=== PATIENT | female | born 1945 | race Caucasian/White ===

== ENCOUNTER 2020-01-03 08:51 | Inpatient (IN) ==
[2020-01-11] MEDS ORDERED: GLUCAGON 1 MG VIAL IM PRN (10:19)
[2020-01-11] MEDS ORDERED: CEFUROXIME INJ 1,500 MG in SYRINGE 1 EACH IV ONE (10:19)
[2020-01-11] MEDS ORDERED: DEXTROSE 10% 250 ML BAG IV PRN (10:19)
[2020-01-11] MEDS ORDERED: SODIUM CHLORIDE 0.9% 1,000 ML IV SCH (10:30)
[2020-01-11] MEDS ORDERED: ZALEPLON 5 MG CAPSULE PO PRN (10:52)
[2020-01-11] MEDS ORDERED: NITROGLYCERIN SL 0.4 MG TABLET SL PRN (10:52)
[2020-01-11 11:18] LABS: Basophils # 0.1 10*3/uL (0.0-0.2); Basophils % 0.8 % (0.0-0.8); Eosinophils # 0.5 10*3/uL (0.0-0.87); Eosinophils % 4.7 % (0.00-10.9); Hematocrit 30.7 VOL% (35.7-47.0); Hemoglobin 9.3 GM/DL (12.0-16.0); Immature Granulocytes % 0.3 %; Immature Granulocytes Absolute 0.03 #; Lymphocytes # 2.6 10*3/uL (1.4-4.0); Lymphocytes % 23.2 % (21.3-54.2); Mean Corpuscular HGB Conc 30.3 GM/DL (32-36); Mean Corpuscular Volume 88.7 FL (87-102); Mean Platelet Volume 11.8 FL (9.6-12.0); Monocytes % 9.1 % (1.7-12.7); Neutrophils % 61.9 % (38.7-73.9); Platelet Count 228 T/CUMM (130-400); Red Blood Count 3.46 MC/CUMM (3.8-5.5); Red Cell Distribution Width 14.6 % (9.3-17.3); White Blood Count 11.1 T/CUMM (4-12)
[2020-01-11] MEDS ORDERED: FAMOTIDINE 20 MG TABLET PO ONE (11:39)
[2020-01-11] MEDS ORDERED: DIAZEPAM 5 MG TABLET PO ONE (11:39)
[2020-01-11 11:48] LABS: Albumin 3.2 G/DL (3.4-5.0); Bilirubin,Total 0.6 MG/DL (0.2-1.0); Calcium 9.1 MG/DL (8.5-10.1); Total Protein 7.2 G/DL (6.4-8.3)
[2020-01-11 12:10] LABS: ABG Base Excess 1.3 MMOL/L (-2.5-2.5); ABG HCO3 25.6 MMOL/L (20-26); ABG Oxygen Saturation 98.2 % (95-100); ABG PCO2 32.3 MM HG (35-48); ABG PH 7.486 (7.35-7.45); ABG PO2 92.1 MM HG (80-95); ABG TCO2 22.4 MMOL/L (23-27)
[2020-01-11] MEDS: CHLORHEXIDINE 4% SOLN 118 ML BOTTLE TOP SCH ×2 (15:42→22:26)
[2020-01-11] MEDS: carvediloL 12.5 MG TABLET PO SCH (18:51)
[2020-01-11] MEDS ORDERED: ATORVASTATIN 80 MG TABLET PO SCH (21:00)
[2020-01-11] MEDS: CHLORHEXIDINE 0.12% ORAL RINSE 60 ML BOTTLE SWISH/SPIT SCH (22:26)
[2020-01-12] MEDS ORDERED: VANCOMYCIN 500 MG VIAL ONE ×3 (04:21→08:30)
[2020-01-12] MEDS ORDERED: VANCOMYCIN 1,000 MG VIAL ONE ×3 (04:21→05:47)
[2020-01-12] MEDS ORDERED: PAPAVERINE 60 MG/2 ML VIAL ONE ×2 (04:21→05:21)
[2020-01-12] MEDS ORDERED: HEPARIN/NACL 0.9% 2 UNITS/ML 500 ML IV ONE (06:00)
[2020-01-12] MEDS ORDERED: FAMOTIDINE 20 MG TABLET PO ONE (06:30)
[2020-01-12] MEDS ORDERED: DIAZEPAM 5 MG TABLET PO ONE (06:30)
[2020-01-12] MEDS ORDERED: CEFUROXIME INJ 1,500 MG in SYRINGE 1 EACH IV ONE (06:30)
[2020-01-12] MEDS ORDERED: diphenhydrAMINE 50 MG/1 ML VIAL ONE (06:40)
[2020-01-12] MEDS ORDERED: FAMOTIDINE 20 MG/2 ML VIAL IV ONE (06:40)
[2020-01-12 07:34] LABS: ABG Base Excess 0.5 MMOL/L (-2.5-2.5); ABG HCO3 24.9 MMOL/L (20-26); ABG PCO2 32.9 MM HG (35-48); ABG PH 7.468 (7.35-7.45); ABG TCO2 22.2 MMOL/L (23-27); Glucose Heart Surgery 115 MG/DL (74-106); Hematocrit Heart Surgery 25.2 PERCENT (37-47); Hemoglobin Heart Surgery 8.1 G/DL (12.0-16.0); Ionized Calcium Arterial 1.21 MMOL/L (1.21-1.46); PCO2 Patient Temp Arterial 32.9 MMHG; PH Patient Temp Arterial 7.468; Patient Temperature 37 CELCIUS; Potassium Heart/CVR 3.3 MMOL/L (3.5-5.1); Sodium Heart/CVR 138 MMOL/L (135-145)
[2020-01-12] MEDS ORDERED: SODIUM BICARBONATE 50 MEQ/50 ML VIAL IV ONE ×2 (07:40→11:57)
[2020-01-12] MEDS ORDERED: CALCIUM CHLORIDE 1,000 MG/10 ML SYRINGE IV ONE (07:40)
[2020-01-12] MEDS ORDERED: ATROPINE 1 MG/10 ML SYRINGE ONE (07:41)
[2020-01-12] MEDS ORDERED: EPINEPHrine 1 MG/10 ML SYRINGE ONE (07:41)
[2020-01-12 08:59] LABS: Amorphous Crystals,Urine Occasional /HPF (Few); Apearance,Urine Slightly Hazy (Clear); Bilirubin,Urine Negative (Negative); Blood, Urine Negative (Negative); Glucose,Urine (UA) Negative (Negative); Hyaline Casts,Urine 4 /LPF (0-3); Ketones,Urine Negative (Negative); Mucus,Urine Occasional /LPF (Occasional); Nitrite,Urine Negative (Negative); Protein,Urine 30 MG/DL; RBC,Urine 2 /HPF (0-4); Urine Color Yellow (Yellow); Urine Specific Gravity 1.021 (1.001-1.035); Urine Urobilinogen < 2.0 EU/DL (0.2-1.0); WBC,Urine 3 /HPF (0-6)
[2020-01-12 09:03] LABS: Hemoglobin Heart Surgery 7.7 G/DL (12.0-16.0); PCO2 Patient Temp Venous 26.4 MM HG; PH Patient Temp Venous 7.512; PO2 Patient Temp Venous 41.4 MM HG; VBG Base Excess -1.1 MEQ/L (0-4); VBG HCO3 23.3 MEQ/L (24-28); VBG Oxygen Saturation 88.6 %; VBG PCO2 30.5 MMHG (41-51); VBG PH 7.467; VBG PO2 50.8 MMHG (17-40)
[2020-01-12 09:34] LABS: Hematocrit Heart Surgery 25.4 PERCENT (37-47); Hemoglobin Heart Surgery 8.2 G/DL (12.0-16.0); PCO2 Patient Temp Venous 27.2 MM HG; PH Patient Temp Venous 7.509; Potassium Heart/CVR 4.4 MMOL/L (3.5-5.1); VBG Base Excess -0.7 MEQ/L (0-4); VBG HCO3 23.7 MEQ/L (24-28); VBG Oxygen Saturation 89.6 %; VBG PH 7.449; VBG PO2 53.7 MMHG (17-40)
[2020-01-12 10:06] LABS: Hemoglobin Heart Surgery 8.6 G/DL (12.0-16.0); PCO2 Patient Temp Venous 26.4 MM HG; PH Patient Temp Venous 7.569; PO2 Patient Temp Venous 44.7 MM HG; Potassium Heart/CVR 4.4 MMOL/L (3.5-5.1); VBG Base Excess 1.6 MEQ/L (0-4); VBG HCO3 24.2 MEQ/L (24-28); VBG Oxygen Saturation 90.4 %; VBG PCO2 30.1 MMHG (41-51); VBG PH 7.523; VBG PO2 55.1 MMHG (17-40)
[2020-01-12] MEDS ORDERED: THROMBIN TOPICAL (RECOMBINANT) 5,000 UNIT VIAL TOP ONE ×2 (10:25→13:14)
[2020-01-12 10:31] LABS: Hemoglobin Heart Surgery 7.6 G/DL (12.0-16.0); PCO2 Patient Temp Venous 33.3 MM HG; PH Patient Temp Venous 7.486; PO2 Patient Temp Venous 38.9 MM HG; Potassium Heart/CVR 4.7 MMOL/L (3.5-5.1); VBG Base Excess 1.2 MEQ/L (0-4); VBG HCO3 24.6 MEQ/L (24-28); VBG Oxygen Saturation 75.3 %; VBG PCO2 33.3 MMHG (41-51); VBG PH 7.486; VBG PO2 38.9 MMHG (17-40)
[2020-01-12] MEDS ORDERED: PHENYLEPHRINE DRIP 40 MG/250 ML PREMIX IV ONE (10:45)
[2020-01-12] MEDS ORDERED: POTASSIUM CHLORIDE RIDER 100 ML IV ONE (10:45)
[2020-01-12] MEDS: CHLORHEXIDINE 0.12% ORAL RINSE 60 ML BOTTLE SWISH/SPIT SCH ×2 (11:08→21:35)
[2020-01-12] MEDS: carvediloL 12.5 MG TABLET PO SCH (11:08)
[2020-01-12] MEDS: CHLORHEXIDINE 4% SOLN 118 ML BOTTLE TOP SCH (11:08)
[2020-01-12 11:38] LABS: ABG Base Excess -1.7 MMOL/L (-2.5-2.5); ABG PCO2 27.2 MM HG (35-48); ABG PH 7.495 (7.35-7.45); ABG TCO2 19.6 MMOL/L (23-27); Glucose Heart Surgery 214 MG/DL (74-106); Hematocrit Heart Surgery 24.1 PERCENT (37-47); Hemoglobin Heart Surgery 7.7 G/DL (12.0-16.0); Ionized Calcium Arterial 1.32 MMOL/L (1.21-1.46); PCO2 Patient Temp Arterial 27.2 MMHG; PH Patient Temp Arterial 7.495; Patient Temperature 37 CELCIUS; Potassium Heart/CVR 3.8 MMOL/L (3.5-5.1); Sodium Heart/CVR 137 MMOL/L (135-145)
[2020-01-12] MEDS ORDERED: MANNITOL 100 GM/500 ML BAG IV ONE (11:56)
[2020-01-12] MEDS ORDERED: LIDOCAINE 2% 5 ML VIAL ONE ×2 (11:56→13:59)
[2020-01-12] MEDS ORDERED: PROTAMINE SULFATE 250 MG/25 ML VIAL IV ONE (11:57)
[2020-01-12] MEDS ORDERED: FUROSEMIDE 20 MG/2 ML VIAL ONE (11:57)
[2020-01-12] MEDS ORDERED: ALBUMIN 25% 25 GM/100 ML VIAL IV ONE (11:57)
[2020-01-12] MEDS ORDERED: HEPARIN 10,000 UNIT/10 ML VIAL ONE (11:57)
[2020-01-12] MEDS ORDERED: DEXTROSE 5% KCL 20 MEQ 20 MEQ/1,000 ML BAG IV ONE ×2 (11:57→12:13)
[2020-01-12] MEDS ORDERED: MAGNESIUM SULFATE 5 GM/10 ML VIAL IV ONE (11:57)
[2020-01-12] MEDS ORDERED: methylPREDNISolone SOD SUC 1,000 MG/8 ML VIAL ONE (11:57)
[2020-01-12] MEDS ORDERED: PROTAMINE SULFATE 50 MG/5 ML VIAL IV ONE ×4 (11:58→14:01)
[2020-01-12] MEDS ORDERED: AMIODARONE IV SCH (12:00)
[2020-01-12] MEDS ORDERED: DEXTROSE 5% IV SCH (12:00)
[2020-01-12 12:03] LABS: ABG Base Excess -2.4 MMOL/L (-2.5-2.5); ABG HCO3 22.4 MMOL/L (20-26); ABG PCO2 29.6 MM HG (35-48); ABG PH 7.456 (7.35-7.45); ABG TCO2 19.6 MMOL/L (23-27); Glucose Heart Surgery 238 MG/DL (74-106); Hematocrit Heart Surgery 23.1 PERCENT (37-47); Hemoglobin Heart Surgery 7.4 G/DL (12.0-16.0); PCO2 Patient Temp Arterial 29.6 MMHG; PH Patient Temp Arterial 7.456; Patient Temperature 37 CELCIUS; Potassium Heart/CVR 3.7 MMOL/L (3.5-5.1); Sodium Heart/CVR 139 MMOL/L (135-145)
[2020-01-12] MEDS ORDERED: AMIODARONE 150 MG/3 ML VIAL ONE ×3 (12:08→14:01)
[2020-01-12] MEDS ORDERED: DEXTROSE 50% 25 GM/50 ML VIAL IV ONE (12:13)
[2020-01-12 12:43] LABS: ABG Base Excess -0.3 MMOL/L (-2.5-2.5); ABG HCO3 23.7 MMOL/L (20-26); ABG PCO2 35.6 MM HG (35-48); ABG PH 7.441 (7.35-7.45); ABG PO2 416.9 MM HG (80-95); ABG TCO2 24.8 MMOL/L (23-27); Glucose Heart Surgery 255 MG/DL (74-106); Hemoglobin Heart Surgery 7.9 G/DL (12.0-16.0); Ionized Calcium Arterial 1.15 MMOL/L (1.21-1.46); PCO2 Patient Temp Arterial 35.6 MMHG; PH Patient Temp Arterial 7.441; PO2 Patient Temp Arterial 416.9 MM HG; Patient Temperature 37 CELCIUS; Sodium Heart/CVR 135 MMOL/L (135-145)
[2020-01-12] MEDS ORDERED: MIDAZOLAM 10 MG/2 ML VIAL IV PRN (13:34)
[2020-01-12] MEDS ORDERED: DEXTROSE 10% 250 ML BAG IV PRN ×2 (13:34)
[2020-01-12] MEDS ORDERED: CALCIUM CHLORIDE 1,000 MG/10 ML SYRINGE IV PRN (13:34)
[2020-01-12] MEDS ORDERED: ONDANSETRON 4 MG/2 ML VIAL IV PRN (13:34)
[2020-01-12] MEDS ORDERED: VECURONIUM 10 MG VIAL IV PRN ×2 (13:34)
[2020-01-12] MEDS ORDERED: ACETAMINOPHEN 650 MG SUPP RECTAL PRN (13:34)
[2020-01-12] MEDS ORDERED: INSULIN REGULAR 100 UNIT/ML IV ONE (13:34)
[2020-01-12] MEDS ORDERED: CHLORHEXIDINE 4% SOLN 118 ML BOTTLE TOP PRN (13:34)
[2020-01-12] MEDS ORDERED: NITROPRUSSIDE 100 MG in DEXTROSE 5% 250 ML IV PRN (13:34)
[2020-01-12] MEDS ORDERED: MAGNESIUM SULF RIDER 4 GM in PREMIX 1 EACH IV PRN (13:34)
[2020-01-12] MEDS ORDERED: MAGNESIUM SULF RIDER 2 GM in PREMIX 1 EACH IV PRN (13:34)
[2020-01-12] MEDS ORDERED: INSULIN REGULAR 100 UNIT/ML IV PRN (13:34)
[2020-01-12] MEDS ORDERED: INSULIN REGULAR DRIP 100 ML IV SCH (13:34)
[2020-01-12] MEDS: SODIUM CHLORIDE 0.45% 1,000 ML IV SCH ×2 (13:45)
[2020-01-12] MEDS ORDERED: PHENYLEPHRINE DRIP 20 MG/250 ML PREMIX IV ONE (13:59)
[2020-01-12] MEDS ORDERED: ALBUMIN 5% 12.5 GM/250 ML VIAL IV ONE (13:59)
[2020-01-12] MEDS ORDERED: DOBUTamine 500 MG/250 ML PREMIX IV ONE (13:59)
[2020-01-12] MEDS ORDERED: CALCIUM CHLORIDE 1,000 MG/10 ML VIAL IV ONE (13:59)
[2020-01-12] MEDS ORDERED: ePHEDrine 50 MG/ML AMP ONE (14:00)
[2020-01-12] MEDS ORDERED: SUFentanil 250 MCG/5 ML AMP ONE (14:00)
[2020-01-12] MEDS ORDERED: MIDAZOLAM 10 MG/2 ML VIAL ONE (14:00)
[2020-01-12] MEDS ORDERED: SEVOFLURANE 1 UNIT/15 MINUTE INH ONE (14:00)
[2020-01-12] MEDS ORDERED: PHENYLEPHRINE 1 MG/10 ML SYRINGE IV ONE (14:01)
[2020-01-12] MEDS ORDERED: EPINEPHrine 1 MG/ML VIAL ONE (14:01)
[2020-01-12] MEDS ORDERED: SODIUM CHLORIDE 0.9% 2,000 ML IV ONE (14:01)
[2020-01-12] MEDS ORDERED: VECURONIUM 10 MG VIAL IV ONE (14:01)
[2020-01-12] MEDS ORDERED: AMINOCAPROIC ACID 5,000 MG/20 ML VIAL ONE (14:01)
[2020-01-12] MEDS ORDERED: SODIUM CHLORIDE 0.9% 250 ML IV ONE (14:02)
[2020-01-12] MEDS ORDERED: SODIUM CHLORIDE 0.9% 100 ML IV ONE (14:02)
[2020-01-12 14:16] LABS: ABG Base Excess -2.8 MMOL/L (-2.5-2.5); ABG HCO3 22.1 MMOL/L (20-26); ABG Oxygen Saturation 99.4 % (95-100); ABG PCO2 30.8 MM HG (35-48); ABG PH 7.432 (7.35-7.45); ABG TCO2 18.3 MMOL/L (23-27); Glucose Heart Surgery 345 MG/DL (74-106); Hemoglobin Heart Surgery 11.3 G/DL (12.0-16.0); Potassium Heart/CVR 4.5 MMOL/L (3.5-5.1)
[2020-01-12] MEDS: LACTATED RINGERS 250 ML IV PRN ×5 (14:18→17:00)
[2020-01-12 14:21] LABS: Basophils # 0.1 10*3/uL (0.0-0.2); Basophils % 0.4 % (0.0-0.8); Eosinophils # 0.2 10*3/uL (0.0-0.87); Eosinophils % 1.3 % (0.00-10.9); Hematocrit 32.1 VOL% (35.7-47.0); Hemoglobin 10.9 GM/DL (12.0-16.0); Immature Granulocytes % 0.9 %; Immature Granulocytes Absolute 0.15 #; Lymphocytes # 2.9 10*3/uL (1.4-4.0); Lymphocytes % 17.7 % (21.3-54.2); Mean Corpuscular Volume 86.5 FL (87-102); Mean Platelet Volume 11.5 FL (9.6-12.0); Monocytes % 0.7 % (1.7-12.7); Platelet Count 173 T/CUMM (130-400); Red Blood Count 3.71 MC/CUMM (3.8-5.5); Red Cell Distribution Width 14.3 % (9.3-17.3); White Blood Count 16.3 T/CUMM (4-12)
[2020-01-12] MEDS: ALBUMIN 5% 12.5 GM in PREMIX 1 EACH IV PRN ×3 (14:29→22:47)
[2020-01-12 14:37] LABS: INR 1.8; PT Patient Result 18.9 SECS (9.8-11.9); Partial Thromboplastin Time 31.1 SECS (23.9-33.8)
[2020-01-12 14:46] LABS: CKMB % 4.6 %
[2020-01-12 14:51] LABS: Albumin 2.5 G/DL (3.4-5.0); Bilirubin,Total 1.4 MG/DL (0.2-1.0); Calcium 9.3 MG/DL (8.5-10.1); Osmolality,Calculated 290.5 MOS/KG (273-304); Total Protein 4.9 G/DL (6.4-8.3); Troponin I 9.43 NG/ML (0.00-0.045)
[2020-01-12 16:22] LABS: Hematocrit Heart Surgery 30.1 PERCENT (37-47); Hemoglobin Heart Surgery 9.7 G/DL (12.0-16.0); PCO2 Patient Temp Venous 36.8 MM HG; PH Patient Temp Venous 7.387; PO2 Patient Temp Venous 25.8 MM HG; Potassium Heart/CVR 3.6 MMOL/L (3.5-5.1); VBG Base Excess -2.4 MEQ/L (0-4); VBG HCO3 21.5 MEQ/L (24-28); VBG Oxygen Saturation 41.4 %; VBG PCO2 36.8 MMHG (41-51); VBG PH 7.387; VBG PO2 25.8 MMHG (17-40)
[2020-01-12 18:07] LABS: ABG Base Excess -4.1 MMOL/L (-2.5-2.5); ABG Oxygen Saturation 98.5 % (95-100); ABG PCO2 28.3 MM HG (35-48); ABG PH 7.439 (7.35-7.45); ABG PO2 95.5 MM HG (80-95); ABG TCO2 17.6 MMOL/L (23-27); Glucose Heart Surgery 211 MG/DL (74-106); Hematocrit Heart Surgery 28.8 PERCENT (37-47); Hemoglobin Heart Surgery 9.3 G/DL (12.0-16.0); Potassium Heart/CVR 2.9 MMOL/L (3.5-5.1)
[2020-01-12] MEDS: POTASSIUM CHLORIDE RIDER 20 MEQ in PREMIX 1 EACH IV PRN ×3 (18:20→22:46)
[2020-01-12] MEDS: AMIODARONE INJ 450 MG in DEXTROSE 5% 241 ML IV SCH (18:42)
[2020-01-12 21:15] LABS: ABG Base Excess -2.5 MMOL/L (-2.5-2.5); ABG HCO3 22.4 MMOL/L (20-26); ABG Oxygen Saturation 98.1 % (95-100); ABG PCO2 28.6 MM HG (35-48); ABG PH 7.462 (7.35-7.45); ABG PO2 90.3 MM HG (80-95); ABG TCO2 18.5 MMOL/L (23-27); Glucose Heart Surgery 137 MG/DL (74-106); Hematocrit Heart Surgery 30.6 PERCENT (37-47); Hemoglobin Heart Surgery 9.9 G/DL (12.0-16.0)
[2020-01-12] MEDS: CEFUROXIME INJ 1,500 MG in SYRINGE 1 EACH IV SCH (21:36)
[2020-01-12 21:39] LABS: CKMB % 5.2 %
[2020-01-12 21:41] LABS: Troponin I 17.5 NG/ML (0.00-0.045)
[2020-01-12] MEDS ORDERED: FUROSEMIDE 40 MG/4 ML VIAL IV ONE (22:24)
[2020-01-12] MEDS: MIDAZOLAM 2 MG/2 ML VIAL IV PRN (23:40)
[2020-01-12 23:49] LABS: ABG Base Excess -3.6 MMOL/L (-2.5-2.5); ABG HCO3 19.6 MMOL/L (20-26); ABG Oxygen Saturation 97.7 % (95-100); ABG PCO2 29.2 MM HG (35-48); ABG PH 7.445 (7.35-7.45); ABG PO2 122.9 MM HG (80-95); ABG TCO2 20.5 MMOL/L (23-27); Glucose Heart Surgery 117 MG/DL (74-106); Hemoglobin Heart Surgery 9.7 G/DL (12.0-16.0); Potassium Heart/CVR 3.9 MMOL/L (3.5-5.1)
[2020-01-13] MEDS: POTASSIUM CHLORIDE RIDER 10 MEQ in PREMIX 1 EACH IV PRN ×2 (00:11→07:10)
[2020-01-13] MEDS: POTASSIUM CHLORIDE RIDER 20 MEQ in PREMIX 1 EACH IV PRN (00:46)
[2020-01-13 04:23] LABS: Basophils % 0.1 % (0.0-0.8); Hematocrit 26.2 VOL% (35.7-47.0); Hemoglobin 8.9 GM/DL (12.0-16.0); Immature Granulocytes % 0.6 %; Immature Granulocytes Absolute 0.09 #; Lymphocytes # 1.8 10*3/uL (1.4-4.0); Lymphocytes % 12.1 % (21.3-54.2); Mean Corpuscular Volume 86.2 FL (87-102); Mean Platelet Volume 11.7 FL (9.6-12.0); Monocytes % 5.6 % (1.7-12.7); Neutrophils % 81.6 % (38.7-73.9); Platelet Count 152 T/CUMM (130-400); Red Blood Count 3.04 MC/CUMM (3.8-5.5); Red Cell Distribution Width 14.5 % (9.3-17.3); White Blood Count 15.1 T/CUMM (4-12)
[2020-01-13 04:30] LABS: ABG Base Excess -1.1 MMOL/L (-2.5-2.5); ABG HCO3 23.5 MMOL/L (20-26); ABG Oxygen Saturation 98.9 % (95-100); ABG PCO2 27.2 MM HG (35-48); ABG TCO2 19.4 MMOL/L (23-27); Glucose Heart Surgery 123 MG/DL (74-106); Hematocrit Heart Surgery 28.2 PERCENT (37-47); Hemoglobin Heart Surgery 9.1 G/DL (12.0-16.0); Potassium Heart/CVR 3.8 MMOL/L (3.5-5.1)
[2020-01-13 04:58] LABS: Bilirubin,Direct 0.29 MG/DL (0.0-0.20); Bilirubin,Total 0.9 MG/DL (0.2-1.0); Calcium 8.4 MG/DL (8.5-10.1); Osmolality,Calculated 283.3 MOS/KG (273-304); Total Protein 4.9 G/DL (6.4-8.3)
[2020-01-13 05:11] LABS: CKMB % 6.2 %
[2020-01-13 05:15] LABS: Troponin I 35.4 NG/ML (0.00-0.045)
[2020-01-13] MEDS: MIDAZOLAM 2 MG/2 ML VIAL IV PRN ×2 (05:58→11:35)
[2020-01-13] MEDS: PHENYLEPHRINE DRIP 40 MG/250 ML PREMIX IV PRN (07:10)
[2020-01-13] MEDS: INSULIN REGULAR 100 UNIT/ML SUBCUT SCH ×6 (07:55→20:18)
[2020-01-13 08:05] LABS: ABG Base Excess -5.6 MMOL/L (-2.5-2.5); ABG HCO3 18.6 MMOL/L (20-26); ABG Oxygen Saturation 97.5 % (95-100); ABG PCO2 31.8 MM HG (35-48); ABG PH 7.385 (7.35-7.45); ABG PO2 114.9 MM HG (80-95); ABG TCO2 19.6 MMOL/L (23-27); Glucose Heart Surgery 154 MG/DL (74-106); Hemoglobin Heart Surgery 10.4 G/DL (12.0-16.0); Potassium Heart/CVR 5.7 MMOL/L (3.5-5.1)
[2020-01-13 08:11] LABS: Hemoglobin Heart Surgery 10.3 G/DL (12.0-16.0); PCO2 Patient Temp Venous 40.2 MM HG; PH Patient Temp Venous 7.329; PO2 Patient Temp Venous 36.5 MM HG; Potassium Heart/CVR 5.9 MMOL/L (3.5-5.1); VBG Base Excess -4.9 MEQ/L (0-4); VBG HCO3 20.7 MEQ/L (24-28); VBG PCO2 40.2 MMHG (41-51); VBG PH 7.329; VBG PO2 36.5 MMHG (17-40)
[2020-01-13] MEDS: CEFUROXIME INJ 1,500 MG in SYRINGE 1 EACH IV SCH ×2 (10:09→20:33)
[2020-01-13] MEDS: CHLORHEXIDINE 0.12% ORAL RINSE 60 ML BOTTLE SWISH/SPIT SCH ×2 (10:10→20:19)
[2020-01-13] MEDS: AMIODARONE INJ 450 MG in DEXTROSE 5% 241 ML IV SCH (10:12)
[2020-01-13 10:25] LABS: ABG Base Excess -6.8 MMOL/L (-2.5-2.5); ABG HCO3 18.9 MMOL/L (20-26); ABG Oxygen Saturation 98.8 % (95-100); ABG PH 7.363 (7.35-7.45); ABG TCO2 16.1 MMOL/L (23-27); Glucose Heart Surgery 187 MG/DL (74-106); Hematocrit Heart Surgery 31.4 PERCENT (37-47); Hemoglobin Heart Surgery 10.1 G/DL (12.0-16.0); Potassium Heart/CVR 5.4 MMOL/L (3.5-5.1)
[2020-01-13] MEDS ORDERED: HALOPERIDOL 5 MG/ML AMP IV ONE (10:29)
[2020-01-13] MEDS: MORPHINE 10 MG/1 ML VIAL IV PRN (10:39)
[2020-01-13] MEDS ORDERED: HALOPERIDOL 5 MG/ML AMP IM ONE (11:30)
[2020-01-13] MEDS ORDERED: FUROSEMIDE 40 MG/4 ML VIAL IV ONE (13:03)
[2020-01-13 13:25] LABS: Hematocrit Heart Surgery 30.8 PERCENT (37-47); PCO2 Patient Temp Venous 41.1 MM HG; PH Patient Temp Venous 7.293; PO2 Patient Temp Venous 42.6 MM HG; Potassium Heart/CVR 4.6 MMOL/L (3.5-5.1); VBG Base Excess -6.3 MEQ/L (0-4); VBG HCO3 18.8 MEQ/L (24-28); VBG Oxygen Saturation 66.9 %; VBG PCO2 41.1 MMHG (41-51); VBG PH 7.293; VBG PO2 42.6 MMHG (17-40)
[2020-01-13] MEDS: methylPREDNISolone SOD SUC 125 MG/2 ML VIAL IV SCH ×2 (13:44→20:33)
[2020-01-13] MEDS: ENOXAPARIN 40 MG/0.4 ML SYRINGE SUBCUT SCH (13:46)
[2020-01-13 13:53] LABS: CKMB % 6.3 %
[2020-01-13 13:54] LABS: Troponin I 26.4 NG/ML (0.00-0.045)
[2020-01-13] MEDS: SODIUM CHLORIDE 0.45% 1,000 ML IV SCH ×2 (14:21)
[2020-01-13 14:41] LABS: ABG Base Excess -5.9 MMOL/L (-2.5-2.5); ABG HCO3 19.6 MMOL/L (20-26); ABG Oxygen Saturation 98.5 % (95-100); ABG PCO2 34.3 MM HG (35-48); ABG TCO2 17.3 MMOL/L (23-27); Glucose Heart Surgery 200 MG/DL (74-106); Hematocrit Heart Surgery 31.3 PERCENT (37-47); Hemoglobin Heart Surgery 10.1 G/DL (12.0-16.0); Potassium Heart/CVR 4.3 MMOL/L (3.5-5.1)
[2020-01-13 17:18] LABS: ABG Base Excess -5.3 MMOL/L (-2.5-2.5); ABG Oxygen Saturation 98.1 % (95-100); ABG PCO2 34.5 MM HG (35-48); ABG PH 7.359 (7.35-7.45); ABG TCO2 17.7 MMOL/L (23-27); Glucose Heart Surgery 204 MG/DL (74-106); Hematocrit Heart Surgery 31.5 PERCENT (37-47); Hemoglobin Heart Surgery 10.2 G/DL (12.0-16.0); Potassium Heart/CVR 3.9 MMOL/L (3.5-5.1)
[2020-01-13] MEDS: MORPHINE 4 MG/1 ML VIAL IV PRN ×2 (18:04→22:02)
[2020-01-13 19:38] LABS: ABG Base Excess -4.3 MMOL/L (-2.5-2.5); ABG HCO3 20.8 MMOL/L (20-26); ABG Oxygen Saturation 97.3 % (95-100); ABG PCO2 35.2 MM HG (35-48); ABG PH 7.369 (7.35-7.45); ABG PO2 90.5 MM HG (80-95); ABG TCO2 18.5 MMOL/L (23-27); Glucose Heart Surgery 195 MG/DL (74-106); Hematocrit Heart Surgery 31.3 PERCENT (37-47); Hemoglobin Heart Surgery 10.1 G/DL (12.0-16.0); Potassium Heart/CVR 3.7 MMOL/L (3.5-5.1)
[2020-01-13] MEDS ORDERED: HALOPERIDOL 5 MG/ML AMP IV PRN (20:01)
[2020-01-13 23:46] LABS: ABG Base Excess -3.2 MMOL/L (-2.5-2.5); ABG HCO3 21.7 MMOL/L (20-26); ABG Oxygen Saturation 97.2 % (95-100); ABG PCO2 35.1 MM HG (35-48); ABG PH 7.389 (7.35-7.45); ABG PO2 88.8 MM HG (80-95); ABG TCO2 19.1 MMOL/L (23-27); Glucose Heart Surgery 175 MG/DL (74-106); Hematocrit Heart Surgery 32.8 PERCENT (37-47); Hemoglobin Heart Surgery 10.6 G/DL (12.0-16.0); Potassium Heart/CVR 3.7 MMOL/L (3.5-5.1)
[2020-01-14] MEDS: INSULIN REGULAR 100 UNIT/ML SUBCUT SCH ×6 (00:57→21:40)
[2020-01-14] MEDS: POTASSIUM CHLORIDE RIDER 20 MEQ in PREMIX 1 EACH IV PRN ×3 (00:58→15:33)
[2020-01-14] MEDS ORDERED: FUROSEMIDE 40 MG/4 ML VIAL IV ONE ×2 (01:12→10:26)
[2020-01-14] MEDS: MORPHINE 4 MG/1 ML VIAL IV PRN ×2 (02:13→16:36)
[2020-01-14 03:41] LABS: Basophils % 0.1 % (0.0-0.8); Hematocrit 28.6 VOL% (35.7-47.0); Hemoglobin 9.2 GM/DL (12.0-16.0); Immature Granulocytes % 0.7 %; Lymphocytes # 1.2 10*3/uL (1.4-4.0); Lymphocytes % 7.5 % (21.3-54.2); Mean Corpuscular HGB Conc 32.2 GM/DL (32-36); Mean Corpuscular Volume 87.2 FL (87-102); Mean Platelet Volume 12.6 FL (9.6-12.0); Monocytes % 5.6 % (1.7-12.7); Neutrophils % 86.1 % (38.7-73.9); Platelet Count 104 T/CUMM (130-400); Red Blood Count 3.28 MC/CUMM (3.8-5.5); Red Cell Distribution Width 17.5 % (9.3-17.3); White Blood Count 15.3 T/CUMM (4-12)
[2020-01-14 03:54] LABS: CKMB % 6.6 %
[2020-01-14 03:56] LABS: Troponin I 15.8 NG/ML (0.00-0.045)
[2020-01-14] MEDS ORDERED: SUCCINYLCHOLINE 200 MG/10 ML VIAL ONE (04:20)
[2020-01-14] MEDS ORDERED: ETOMIDATE 40 MG/20 ML VIAL IV ONE (04:20)
[2020-01-14 04:23] LABS: ABG Base Excess -2.9 MMOL/L (-2.5-2.5); ABG Oxygen Saturation 99.3 % (95-100); ABG PCO2 38.7 MM HG (35-48); ABG PH 7.364 (7.35-7.45); ABG TCO2 20.2 MMOL/L (23-27); Glucose Heart Surgery 181 MG/DL (74-106); Hematocrit Heart Surgery 31.1 PERCENT (37-47); Hemoglobin Heart Surgery 10.1 G/DL (12.0-16.0); Potassium Heart/CVR 3.9 MMOL/L (3.5-5.1)
[2020-01-14 04:50] LABS: Albumin 2.6 G/DL (3.4-5.0); Bilirubin,Direct 0.24 MG/DL (0.0-0.20); Bilirubin,Total 0.7 MG/DL (0.2-1.0); Calcium 7.9 MG/DL (8.5-10.1); Osmolality,Calculated 289.1 MOS/KG (273-304); Total Protein 5.1 G/DL (6.4-8.3)
[2020-01-14] MEDS ORDERED: HEPARIN/NACL 0.9% 2 UNITS/ML 500 ML IV ONE (05:20)
[2020-01-14] MEDS: methylPREDNISolone SOD SUC 125 MG/2 ML VIAL IV SCH ×3 (05:50→22:25)
[2020-01-14 06:17] LABS: ABG Base Excess -2.2 MMOL/L (-2.5-2.5); ABG HCO3 22.5 MMOL/L (20-26); ABG Oxygen Saturation 98.1 % (95-100); ABG PCO2 33.6 MM HG (35-48); ABG PH 7.418 (7.35-7.45); ABG PO2 99.5 MM HG (80-95); ABG TCO2 19.9 MMOL/L (23-27); Glucose Heart Surgery 159 MG/DL (74-106); Hematocrit Heart Surgery 28.6 PERCENT (37-47); Hemoglobin Heart Surgery 9.2 G/DL (12.0-16.0); Potassium Heart/CVR 4.1 MMOL/L (3.5-5.1)
[2020-01-14] MEDS: SODIUM CHLORIDE 0.45% 1,000 ML IV SCH ×3 (08:27→14:18)
[2020-01-14] MEDS: CHLORHEXIDINE 0.12% ORAL RINSE 60 ML BOTTLE SWISH/SPIT SCH ×2 (09:17→21:42)
[2020-01-14 10:13] LABS: Hematocrit Heart Surgery 28.3 PERCENT (37-47); Hemoglobin Heart Surgery 9.1 G/DL (12.0-16.0); PCO2 Patient Temp Venous 40.6 MM HG; PH Patient Temp Venous 7.375; PO2 Patient Temp Venous 36.6 MM HG; Potassium Heart/CVR 3.8 MMOL/L (3.5-5.1); VBG Base Excess -1.3 MEQ/L (0-4); VBG HCO3 22.7 MEQ/L (24-28); VBG Oxygen Saturation 58.8 %; VBG PCO2 40.6 MMHG (41-51); VBG PH 7.375; VBG PO2 36.6 MMHG (17-40)
[2020-01-14 12:10] LABS: Hemoglobin Heart Surgery 10.1 G/DL (12.0-16.0); Potassium Heart/CVR 4.4 MMOL/L (3.5-5.1); VBG HCO3 22.8 MEQ/L (24-28); VBG Oxygen Saturation 59.2 %; VBG PCO2 39.4 MMHG (41-51); VBG PH 7.381; VBG PO2 34.8 MMHG (17-40)
[2020-01-14 12:11] LABS: PCO2 Patient Temp Venous 39.4 MM HG; PH Patient Temp Venous 7.381; PO2 Patient Temp Venous 34.8 MM HG
[2020-01-14] MEDS: ENOXAPARIN 40 MG/0.4 ML SYRINGE SUBCUT SCH (14:17)
[2020-01-14] MEDS: PHENYLEPHRINE DRIP 40 MG/250 ML PREMIX IV PRN (14:20)
[2020-01-14 15:19] LABS: ABG Base Excess -1.9 MMOL/L (-2.5-2.5); ABG HCO3 22.8 MMOL/L (20-26); ABG Oxygen Saturation 99.2 % (95-100); ABG PCO2 32.7 MM HG (35-48); ABG PH 7.431 (7.35-7.45); ABG TCO2 19.9 MMOL/L (23-27); Glucose Heart Surgery 173 MG/DL (74-106); Hematocrit Heart Surgery 29.2 PERCENT (37-47); Hemoglobin Heart Surgery 9.4 G/DL (12.0-16.0); Potassium Heart/CVR 3.6 MMOL/L (3.5-5.1)
[2020-01-14 21:06] LABS: ABG Base Excess -1.5 MMOL/L (-2.5-2.5); ABG HCO3 21.2 MMOL/L (20-26); ABG Oxygen Saturation 97.9 % (95-100); ABG PCO2 28.7 MM HG (35-48); ABG PH 7.487 (7.35-7.45); ABG TCO2 22.1 MMOL/L (23-27); Glucose Heart Surgery 151 MG/DL (74-106); Hemoglobin Heart Surgery 9.6 G/DL (12.0-16.0); Potassium Heart/CVR 3.6 MMOL/L (3.5-5.1)
[2020-01-15] MEDS: INSULIN REGULAR 100 UNIT/ML SUBCUT SCH ×6 (03:27→23:17)
[2020-01-15 04:43] LABS: Basophils % 0.1 % (0.0-0.8); Hemoglobin 8.9 GM/DL (12.0-16.0); Immature Granulocytes % 0.6 %; Immature Granulocytes Absolute 0.09 #; Lymphocytes # 1.1 10*3/uL (1.4-4.0); Lymphocytes % 7.2 % (21.3-54.2); Mean Corpuscular HGB Conc 31.8 GM/DL (32-36); Mean Corpuscular Volume 88.3 FL (87-102); Mean Platelet Volume 12.6 FL (9.6-12.0); Monocytes % 4.9 % (1.7-12.7); Neutrophils % 87.2 % (38.7-73.9); Platelet Count 116 T/CUMM (130-400); Red Blood Count 3.17 MC/CUMM (3.8-5.5); Red Cell Distribution Width 17.7 % (9.3-17.3); White Blood Count 15.5 T/CUMM (4-12)
[2020-01-15 04:45] LABS: ABG Base Excess 0.1 MMOL/L (-2.5-2.5); ABG HCO3 24.5 MMOL/L (20-26); ABG Oxygen Saturation 98.7 % (95-100); ABG PH 7.477 (7.35-7.45); ABG TCO2 20.7 MMOL/L (23-27); Glucose Heart Surgery 161 MG/DL (74-106); Hematocrit Heart Surgery 32.3 PERCENT (37-47); Hemoglobin Heart Surgery 10.5 G/DL (12.0-16.0); Potassium Heart/CVR 3.5 MMOL/L (3.5-5.1)
[2020-01-15 05:11] LABS: Albumin 2.4 G/DL (3.4-5.0); Bilirubin,Direct 0.15 MG/DL (0.0-0.20); Bilirubin,Total 0.4 MG/DL (0.2-1.0); Calcium 8.4 MG/DL (8.5-10.1); Osmolality,Calculated 285.5 MOS/KG (273-304); Total Protein 5.2 G/DL (6.4-8.3)
[2020-01-15] MEDS: methylPREDNISolone SOD SUC 125 MG/2 ML VIAL IV SCH ×3 (05:50→23:15)
[2020-01-15] MEDS: POTASSIUM CHLORIDE RIDER 20 MEQ in PREMIX 1 EACH IV PRN (05:52)
[2020-01-15] MEDS: MORPHINE 4 MG/1 ML VIAL IV PRN ×4 (08:00→15:18)
[2020-01-15] MEDS: CHLORHEXIDINE 0.12% ORAL RINSE 60 ML BOTTLE SWISH/SPIT SCH ×2 (08:04→23:17)
[2020-01-15 09:03] LABS: ABG Base Excess -0.4 MMOL/L (-2.5-2.5); ABG HCO3 22.6 MMOL/L (20-26); ABG Oxygen Saturation 96.8 % (95-100); ABG PCO2 31.4 MM HG (35-48); ABG PH 7.475 (7.35-7.45); ABG PO2 97.4 MM HG (80-95); ABG TCO2 23.6 MMOL/L (23-27); Glucose Heart Surgery 132 MG/DL (74-106); Hemoglobin Heart Surgery 10.3 G/DL (12.0-16.0); Potassium Heart/CVR 4.4 MMOL/L (3.5-5.1)
[2020-01-15 10:22] LABS: Hematocrit Heart Surgery 28.1 PERCENT (37-47); Hemoglobin Heart Surgery 9.1 G/DL (12.0-16.0); PCO2 Patient Temp Venous 40.9 MM HG; PH Patient Temp Venous 7.392; Potassium Heart/CVR 3.9 MMOL/L (3.5-5.1); VBG HCO3 23.8 MEQ/L (24-28); VBG PCO2 40.9 MMHG (41-51); VBG PH 7.392
[2020-01-15] MEDS: MORPHINE 10 MG/1 ML VIAL IV PRN (10:50)
[2020-01-15 12:04] LABS: ABG Base Excess -0.3 MMOL/L (-2.5-2.5); ABG HCO3 23.7 MMOL/L (20-26); ABG Oxygen Saturation 96.3 % (95-100); ABG PCO2 36.1 MM HG (35-48); ABG PH 7.435 (7.35-7.45); ABG PO2 92.2 MM HG (80-95); ABG TCO2 24.8 MMOL/L (23-27); Glucose Heart Surgery 130 MG/DL (74-106)
[2020-01-15] MEDS: ENOXAPARIN 40 MG/0.4 ML SYRINGE SUBCUT SCH (12:32)
[2020-01-15 12:51] LABS: ABG Base Excess -0.3 MMOL/L (-2.5-2.5); ABG HCO3 24.2 MMOL/L (20-26); ABG Oxygen Saturation 97.6 % (95-100); ABG PCO2 36.5 MM HG (35-48); ABG PH 7.424 (7.35-7.45); ABG TCO2 21.8 MMOL/L (23-27); Glucose Heart Surgery 142 MG/DL (74-106); Hematocrit Heart Surgery 29.5 PERCENT (37-47); Hemoglobin Heart Surgery 9.5 G/DL (12.0-16.0); Potassium Heart/CVR 4.1 MMOL/L (3.5-5.1)
[2020-01-15] MEDS: SODIUM CHLORIDE 0.45% 1,000 ML IV SCH ×2 (12:51→14:04)
[2020-01-15 13:56] LABS: ABG Base Excess -0.4 MMOL/L (-2.5-2.5); ABG Oxygen Saturation 93.5 % (95-100); ABG PCO2 36.5 MM HG (35-48); ABG PH 7.421 (7.35-7.45); ABG PO2 70.6 MM HG (80-95); ABG TCO2 21.6 MMOL/L (23-27); Glucose Heart Surgery 145 MG/DL (74-106); Hematocrit Heart Surgery 30.1 PERCENT (37-47); Hemoglobin Heart Surgery 9.7 G/DL (12.0-16.0); Potassium Heart/CVR 4.1 MMOL/L (3.5-5.1)
[2020-01-15] MEDS: ALBUMIN 5% 12.5 GM in PREMIX 1 EACH IV PRN (14:29)
[2020-01-15] MEDS ORDERED: FUROSEMIDE 40 MG/4 ML VIAL IV ONE (14:30)
[2020-01-15] MEDS ORDERED: HYDROmorphone 2 MG/1 ML VIAL IV PRN (15:51)
[2020-01-15] MEDS: HYDROmorphone 2 MG/1 ML VIAL IV PRN (16:18)
[2020-01-15] MEDS: ALBUTEROL/IPRATROPIUM 3 ML NEB RESP TX SCH ×3 (16:25→23:10)
[2020-01-15 16:31] LABS: ABG Base Excess -0.9 MMOL/L (-2.5-2.5); ABG HCO3 23.5 MMOL/L (20-26); ABG Oxygen Saturation 88.9 % (95-100); ABG PH 7.378 (7.35-7.45); ABG PO2 62.9 MM HG (80-95); ABG TCO2 22.1 MMOL/L (23-27); Glucose Heart Surgery 157 MG/DL (74-106); Hematocrit Heart Surgery 30.3 PERCENT (37-47); Hemoglobin Heart Surgery 9.8 G/DL (12.0-16.0); Potassium Heart/CVR 3.7 MMOL/L (3.5-5.1)
[2020-01-15] MEDS ORDERED: DOBUTamine 500 MG/250 ML PREMIX IV PRN (16:56)
[2020-01-15] MEDS: FUROSEMIDE INJ 100 MG in SODIUM CHLORIDE 0.9% 90 ML IV SCH ×2 (17:54→23:19)
[2020-01-16] MEDS: INSULIN REGULAR 100 UNIT/ML SUBCUT SCH ×6 (02:04→22:14)
[2020-01-16] MEDS: HYDROmorphone 2 MG/1 ML VIAL IV PRN (02:10)
[2020-01-16] MEDS: ALBUTEROL/IPRATROPIUM 3 ML NEB RESP TX SCH ×6 (03:04→23:25)
[2020-01-16] MEDS: FUROSEMIDE INJ 100 MG in SODIUM CHLORIDE 0.9% 90 ML IV SCH ×3 (04:07→09:43)
[2020-01-16 05:40] LABS: Basophils % 0.1 % (0.0-0.8); Hematocrit 30.8 VOL% (35.7-47.0); Hemoglobin 9.7 GM/DL (12.0-16.0); Immature Granulocytes % 0.6 %; Immature Granulocytes Absolute 0.08 #; Lymphocytes % 6.6 % (21.3-54.2); Mean Corpuscular HGB Conc 31.5 GM/DL (32-36); Mean Platelet Volume 13.1 FL (9.6-12.0); Monocytes % 6.5 % (1.7-12.7); NRBC # 0.02 10*3/uL; Neutrophils % 86.2 % (38.7-73.9); Platelet Count 101 T/CUMM (130-400); Red Blood Count 3.46 MC/CUMM (3.8-5.5); Red Cell Distribution Width 17.3 % (9.3-17.3); White Blood Count 14.3 T/CUMM (4-12)
[2020-01-16 05:54] LABS: Albumin 2.8 G/DL (3.4-5.0); Bilirubin,Total 0.9 MG/DL (0.2-1.0); Calcium 8.5 MG/DL (8.5-10.1); Osmolality,Calculated 293.3 MOS/KG (273-304); Total Protein 6.1 G/DL (6.4-8.3)
[2020-01-16] MEDS: CEFEPIME 1,000 MG in SODIUM CHLORIDE 0.9% 100 ML IV SCH ×3 (06:56→17:07)
[2020-01-16] MEDS: POTASSIUM CHLORIDE RIDER 20 MEQ in PREMIX 1 EACH IV PRN ×3 (07:00→13:05)
[2020-01-16] MEDS: methylPREDNISolone SOD SUC 125 MG/2 ML VIAL IV SCH ×2 (07:51→22:10)
[2020-01-16] MEDS ORDERED: HEPARIN/NACL 0.9% 2 UNITS/ML 500 ML IV ONE (09:54)
[2020-01-16 10:02] LABS: VBG Base Excess 5.3 MEQ/L (0-4); VBG HCO3 28.5 MEQ/L (24-28); VBG Oxygen Saturation 59.8 %; VBG PCO2 42.9 MMHG (41-51); VBG PH 7.45; VBG PO2 37.4 MMHG (17-40)
[2020-01-16] MEDS: PANTOPRAZOLE 40 MG VIAL IV SCH (10:14)
[2020-01-16] MEDS: CHLORHEXIDINE 0.12% ORAL RINSE 60 ML BOTTLE SWISH/SPIT SCH ×2 (10:14→22:19)
[2020-01-16 10:28] LABS: ABG Base Excess 4.4 MMOL/L (-2.5-2.5); ABG HCO3 28.3 MMOL/L (20-26); ABG Oxygen Saturation 93.9 % (95-100); ABG PCO2 36.2 MM HG (35-48); ABG PH 7.493 (7.35-7.45); ABG PO2 67.7 MM HG (80-95); ABG TCO2 25.2 MMOL/L (23-27); Glucose Heart Surgery 189 MG/DL (74-106); Hematocrit Heart Surgery 30.4 PERCENT (37-47); Hemoglobin Heart Surgery 9.8 G/DL (12.0-16.0); Potassium Heart/CVR 2.9 MMOL/L (3.5-5.1)
[2020-01-16 12:08] LABS: Hypochromasia 1+; Platelet Estimate Adequate; Polychromasia Slight
[2020-01-16] MEDS: ENOXAPARIN 40 MG/0.4 ML SYRINGE SUBCUT SCH (13:04)
[2020-01-16] MEDS: SODIUM CHLORIDE 0.45% 1,000 ML IV SCH ×2 (14:06)
[2020-01-17] MEDS: INSULIN REGULAR 100 UNIT/ML SUBCUT SCH ×6 (01:06→22:22)
[2020-01-17] MEDS: CEFEPIME 1,000 MG in SODIUM CHLORIDE 0.9% 100 ML IV SCH ×4 (01:47→17:45)
[2020-01-17] MEDS: ALBUTEROL/IPRATROPIUM 3 ML NEB RESP TX SCH ×5 (03:07→19:10)
[2020-01-17 05:23] LABS: Hematocrit 26.8 VOL% (35.7-47.0); Hemoglobin 8.7 GM/DL (12.0-16.0); Immature Granulocytes % 0.9 %; Immature Granulocytes Absolute 0.11 #; Lymphocytes # 0.7 10*3/uL (1.4-4.0); Lymphocytes % 5.9 % (21.3-54.2); Mean Corpuscular HGB Conc 32.5 GM/DL (32-36); Mean Corpuscular Volume 87.9 FL (87-102); Monocytes % 7.3 % (1.7-12.7); NRBC # 0.03 10*3/uL; Neutrophils % 85.9 % (38.7-73.9); Platelet Count 104 T/CUMM (130-400); Red Blood Count 3.05 MC/CUMM (3.8-5.5); Red Cell Distribution Width 17.1 % (9.3-17.3); White Blood Count 12.3 T/CUMM (4-12)
[2020-01-17 05:53] LABS: Albumin 2.4 G/DL (3.4-5.0); Bilirubin,Total 1.5 MG/DL (0.2-1.0); CKMB % 4.8 %; Calcium 8.2 MG/DL (8.5-10.1); Total Protein 5.3 G/DL (6.4-8.3)
[2020-01-17 06:19] LABS: Troponin I 24.1 NG/ML (0.00-0.045)
[2020-01-17] MEDS: POTASSIUM CHLORIDE RIDER 20 MEQ in PREMIX 1 EACH IV PRN (07:21)
[2020-01-17] MEDS: PANTOPRAZOLE 40 MG VIAL IV SCH (08:35)
[2020-01-17] MEDS: ASPIRIN EC 81 MG TABLET PO SCH (08:35)
[2020-01-17] MEDS: methylPREDNISolone SOD SUC 125 MG/2 ML VIAL IV SCH ×2 (08:35→22:21)
[2020-01-17] MEDS: CHLORHEXIDINE 0.12% ORAL RINSE 60 ML BOTTLE SWISH/SPIT SCH ×2 (08:40→22:00)
[2020-01-17] MEDS: SODIUM CHLORIDE 0.45% 1,000 ML IV SCH ×2 (14:00)
[2020-01-17] MEDS: ENOXAPARIN 40 MG/0.4 ML SYRINGE SUBCUT SCH (16:30)
[2020-01-17 19:04] VITALS: BP 113/81
[2020-01-17] MEDS: HYDROmorphone 2 MG/1 ML VIAL IV PRN (21:57)
[2020-01-18] MEDS: CEFEPIME 1,000 MG in SODIUM CHLORIDE 0.9% 100 ML IV SCH ×5 (00:31→23:35)
[2020-01-18] MEDS: ALBUTEROL/IPRATROPIUM 3 ML NEB RESP TX SCH ×6 (00:45→19:26)
[2020-01-18] MEDS: INSULIN REGULAR 100 UNIT/ML SUBCUT SCH ×6 (03:58→21:46)
[2020-01-18 04:46] LABS: Basophils % 0.1 % (0.0-0.8); Hemoglobin 9.1 GM/DL (12.0-16.0); Immature Granulocytes % 0.8 %; Immature Granulocytes Absolute 0.15 #; Lymphocytes # 0.8 10*3/uL (1.4-4.0); Lymphocytes % 4.4 % (21.3-54.2); Mean Corpuscular HGB Conc 31.4 GM/DL (32-36); Mean Platelet Volume 12.5 FL (9.6-12.0); Monocytes % 6.9 % (1.7-12.7); NRBC # 0.05 10*3/uL; Neutrophils % 87.8 % (38.7-73.9); Platelet Count 121 T/CUMM (130-400); Red Blood Count 3.26 MC/CUMM (3.8-5.5); Red Cell Distribution Width 17.3 % (9.3-17.3); White Blood Count 17.8 T/CUMM (4-12)
[2020-01-18 05:09] LABS: Lymphocytes 4 % (20-55); Nucleated Red Blood Cells 1 (0-5); Platelet Estimate Adequate; Segmented Neutrophils 91 % (50-85); Total Cells Counted 100
[2020-01-18 05:10] LABS: Hypochromasia 1+
[2020-01-18 05:15] LABS: CKMB % 4.1 %; Osmolality,Calculated 290.7 MOS/KG (273-304)
[2020-01-18 05:22] LABS: Troponin I 16.9 NG/ML (0.00-0.045)
[2020-01-18] MEDS: POTASSIUM CHLORIDE RIDER 20 MEQ in PREMIX 1 EACH IV PRN ×4 (06:31→17:01)
[2020-01-18] MEDS: carvediloL 3.125 MG TABLET PO SCH ×2 (09:19→21:45)
[2020-01-18] MEDS: CHLORHEXIDINE 0.12% ORAL RINSE 60 ML BOTTLE SWISH/SPIT SCH ×2 (09:19→21:45)
[2020-01-18] MEDS: ASPIRIN EC 81 MG TABLET PO SCH (09:19)
[2020-01-18] MEDS: methylPREDNISolone SOD SUC 125 MG/2 ML VIAL IV SCH ×2 (09:21→21:46)
[2020-01-18] MEDS: PANTOPRAZOLE 40 MG VIAL IV SCH (09:23)
[2020-01-18] MEDS: FUROSEMIDE 40 MG/4 ML VIAL IV SCH ×2 (09:25→16:58)
[2020-01-18] MEDS: ENOXAPARIN 40 MG/0.4 ML SYRINGE SUBCUT SCH (12:30)
[2020-01-18] MEDS ORDERED: ATORVASTATIN 80 MG TABLET PO SCH (21:00)
[2020-01-18] MEDS: MORPHINE 4 MG/1 ML VIAL IV PRN (23:18)
[2020-01-19] MEDS: ALBUTEROL/IPRATROPIUM 3 ML NEB RESP TX SCH ×4 (00:26→11:56)
[2020-01-19] MEDS: INSULIN REGULAR 100 UNIT/ML SUBCUT SCH ×5 (02:48→16:14)
[2020-01-19 05:33] LABS: Basophils % 0.1 % (0.0-0.8); Hematocrit 28.2 VOL% (35.7-47.0); Hemoglobin 8.9 GM/DL (12.0-16.0); Immature Granulocytes % 1.4 %; Immature Granulocytes Absolute 0.21 #; Lymphocytes % 6.5 % (21.3-54.2); Mean Corpuscular HGB Conc 31.6 GM/DL (32-36); Mean Corpuscular Volume 90.1 FL (87-102); Monocytes % 5.2 % (1.7-12.7); NRBC # 0.05 10*3/uL; Neutrophils % 86.8 % (38.7-73.9); Platelet Count 111 T/CUMM (130-400); Red Blood Count 3.13 MC/CUMM (3.8-5.5); Red Cell Distribution Width 17.8 % (9.3-17.3); White Blood Count 15.1 T/CUMM (4-12)
[2020-01-19 05:52] LABS: Albumin 2.4 G/DL (3.4-5.0); Bilirubin,Total 0.9 MG/DL (0.2-1.0); CKMB % 4.1 %; Osmolality,Calculated 292.7 MOS/KG (273-304); Total Protein 5.5 G/DL (6.4-8.3)
[2020-01-19 05:54] LABS: Troponin I 15.7 NG/ML (0.00-0.045)
[2020-01-19 06:09] LABS: Anisocytosis 1+; Hypochromasia 1+; Microcytosis 1+; Polychromasia Slight
[2020-01-19 06:10] LABS: Acanthocytes Few; Platelet Estimate Decreased
[2020-01-19] MEDS: CEFEPIME 1,000 MG in SODIUM CHLORIDE 0.9% 100 ML IV SCH ×3 (06:36→18:20)
[2020-01-19] MEDS: POTASSIUM CHLORIDE RIDER 20 MEQ in PREMIX 1 EACH IV PRN (06:52)
[2020-01-19] MEDS: methylPREDNISolone SOD SUC 125 MG/2 ML VIAL IV SCH (07:44)
[2020-01-19] MEDS: FUROSEMIDE 40 MG/4 ML VIAL IV SCH (07:44)
[2020-01-19] MEDS: ASPIRIN EC 81 MG TABLET PO SCH (08:06)
[2020-01-19] MEDS: PANTOPRAZOLE 40 MG VIAL IV SCH (08:06)
[2020-01-19] MEDS: carvediloL 3.125 MG TABLET PO SCH (08:06)
[2020-01-19] MEDS: CHLORHEXIDINE 0.12% ORAL RINSE 60 ML BOTTLE SWISH/SPIT SCH (08:06)
[2020-01-19] MEDS ORDERED: carvediloL 6.25 MG TABLET PO SCH ×2 (09:00→21:00)
[2020-01-19] MEDS ORDERED: carvediloL 3.125 MG TABLET PO ONE (09:19)
[2020-01-19] MEDS ORDERED: MAGNESIUM SULF RIDER 2 GM in PREMIX 1 EACH IV PRN (11:21)
[2020-01-19] MEDS ORDERED: ACETAMINOPHEN 325 MG TABLET PO PRN (11:21)
[2020-01-19] MEDS ORDERED: ZALEPLON 5 MG CAPSULE PO PRN (11:21)
[2020-01-19] MEDS ORDERED: ALUMINUM/MAGNES/SIMETH MAX STR 30 ML UDCUP PO PRN (11:21)
[2020-01-19] MEDS ORDERED: ONDANSETRON 4 MG/2 ML VIAL IV PRN (11:21)
[2020-01-19] MEDS ORDERED: MAGNESIUM SULF RIDER 4 GM in PREMIX 1 EACH IV PRN (11:21)
[2020-01-19] MEDS ORDERED: POTASSIUM CHLORIDE 20 MEQ TABLET PO PRN (11:21)
[2020-01-19] MEDS ORDERED: GLUCAGON 1 MG VIAL IM PRN (11:21)
[2020-01-19] MEDS ORDERED: MAGNESIUM HYDROXIDE SUSP 30 ML UDCUP PO PRN (11:21)
[2020-01-19] MEDS ORDERED: DEXTROSE 10% 250 ML BAG IV PRN (11:26)
[2020-01-19] MEDS ORDERED: SODIUM CHLOR 0.45% KCL 20 MEQ 20 MEQ/1,000 ML BAG IV SCH (11:30)
[2020-01-19] MEDS: ENOXAPARIN 40 MG/0.4 ML SYRINGE SUBCUT SCH (12:32)
[2020-01-19] MEDS ORDERED: CLORAZEPATE 3.75 MG TABLET PO PRN (14:22)
[2020-01-19] MEDS ORDERED: LEVOFLOXACIN INJ 500 MG in PREMIX 1 EACH IV SCH (16:00)
[2020-01-19] MEDS ORDERED: ALBUTEROL/IPRATROPIUM 3 ML NEB RESP TX PRN (17:09)
[2020-01-19] MEDS ORDERED: ALBUTEROL/IPRATROPIUM 3 ML NEB RESP TX SCH (19:00)
[2020-01-19] MEDS ORDERED: EPINEPHrine 1 MG/10 ML SYRINGE ONE ×2 (19:54→20:05)
[2020-01-19] MEDS ORDERED: CHLORHEXIDINE 0.12% ORAL RINSE 60 ML BOTTLE SWISH/SPIT SCH (21:00)
[2020-01-20] MEDS ORDERED: FUROSEMIDE 40 MG/4 ML VIAL IV ONE (06:00)
[2020-01-20] MEDS ORDERED: ASPIRIN 325 MG TABLET PO SCH (09:00)
[2020-01-20] MEDS ORDERED: DOCUSATE SODIUM 100 MG CAPSULE PO SCH (09:00)
[2020-01-20] MEDS ORDERED: FERROUS SULFATE 325 MG TABLET PO SCH (09:00)
[2020-01-20] MEDS ORDERED: PANTOPRAZOLE 40 MG TABLET PO SCH (09:00)
== END 2020-01-20 00:30 | disposition expired | DRG 236 ==
LOC: N.TELES 01-11 10:14 → N.CVR 01-12 13:28 → N.ICU 01-16 15:44 → N.TELES 01-19 18:16